=== PATIENT | female | born 1965 | race Caucasian/White ===

== ENCOUNTER 2021-04-23 19:36 | Inpatient (IN) | payer OTHER ==
[~2021-04-23] VITALS: Ht 172.7 cm; Wt 83.0 kg
[2021-04-23 19:37] VITALS: BP 161/69
[2021-04-23] MEDS ORDERED: LIPITOR40 MG PO (20:11)
[2021-04-23] MEDS ORDERED: CHILDREN'S ASPI81 M1 PO (20:11)
[2021-04-23] MEDS ORDERED: LISINOPRIL5 MG PO (20:11)
[2021-04-23] MEDS ORDERED: TOPROL XL50 MG PO (20:11)
[2021-04-23] MEDS ORDERED: NEURONTIN 300M300 M2 PO (20:11)
[2021-04-23] MEDS ORDERED: XARELTO20 MG PO (20:12)
[2021-04-23 20:38] LABS: ABSOLUTE NEUTROPHILS 4.7 thou/uL (1.4-8.2); BASOPHILS 0.6 % (0.0-2.0); EOSINOPHILS 3.9 % (0.0-3.0); HEMATOCRIT 36.4 % (37.0-47.0); HEMOGLOBIN 12.2 gm/dL (12.0-15.0); LYMPHOCYTES 20.8 % (24.0-44.0); MCH 31.8 pg (26.0-34.0); MCHC 33.4 g/dL (28.0-37.0); MCV 95.1 fL (80.0-100.0); MONOCYTES 7.2 % (1.0-8.0); PLATELET COUNT 257 thou/uL (150-400); POLYS 67.5 % (36.0-66.0); RBC 3.83 mil/uL (4.20-5.00); RDW 12.7 % (10.5-14.5)
[2021-04-23 21:16] LABS: ANION GAP 9 mmol/L (7-16); BUN 22 mg/dL (7-18); CHLORIDE 105 mmol/L (98-107); CO2 27 mmol/L (21-32); CREATININE 1.1 mg/dL (0.6-1.0); GLUCOSE 101 mg/dL (74-106); SODIUM 141 mmol/L (136-145)
[2021-04-23 21:33] LABS: ALBUMIN 3.6 g/dL (3.4-5.0); LIPASE 85 U/L (73-393); SGOT 19 U/L (15-37); SGPT 14 U/L (30-65); TOTAL BILIRUBIN 0.4 mg/dL (0.2-1.0); TOTAL PROTEIN 7.5 g/dL (6.4-8.2); TROPONIN-I <0.06 ng/mL (<0.06)
[2021-04-23 23:22] VITALS: BP 142/82
[2021-04-23 23:46] VITALS: BP 140/71
[2021-04-24 00:10] VITALS: BP 132/74
[2021-04-24] MEDS ORDERED: PROAIR HFA8.5 GM INH (00:36)
[2021-04-24 05:25] LABS: CHOLESTEROL 174 mg/dL (<200); HDL CHOLESTEROL 68 mg/dL (>40); LDL CHOLESTEROL 92 mg/dL (<100); SERUM ASSESSMENT Clear; TC:HDL 2.6 Ratio (Not establshd); TRIGLYCERIDE 74 mg/dL (<150); TROPONIN-I <0.06 ng/mL (<0.06); VLDL 15 mg/dL (<40)
[2021-04-24 05:43] VITALS: BP 109/49
--- NOTE | 2021-04-24 06:19 | NUR ---
RECEIVED REPORT FROM ER NURSE. PT ARRIVED TO ROOM 364 AROUND MIDNIGHT. ADMISSION HX AND ASSESSMENT COMPLETED CHARTED. SHE C/O LEFT SIDED CHEST PAIN AND LEFT JAW PAIN. TYLENOL GIVEN FOR PAIN PT DECLINED ANY OTHER PAIN MEDICATION. SHE ALSO DECLINED SUBLIGUAL NITRO FOR CP. VSS. AFEBRILE. SB, SR ON TELE. HR 40S-60S. PT HAS BEEN SLEEPING QUIETLY IN BED THIS MORNING. RESPIRATIONS EVEN AND UNLABORED. FALL PRECAUTIONS IN PLACE PT STATED SHE HAS HX OF FALLS. PROGRESSING SLOWLY TOWARD POC GOALS. WILL GIVE REPORT TO ONCOMING NURSE.
--- NOTE | 2021-04-24 07:25 | EKG ---
[address] [employer] [place] [address] ELECTROCARDIOGRAM REPORT Name: JUSTO MEJIALainey GUERRERO Room #: 364-P ADM IN M.R.#: [id number] Admission: 04/23/21 Attend Phys: Raad Mckeon MD Discharge: Date of : 67 Report #: [id number] [facility] ED Test Date: 2021-04-23 Test Time: 21:53:53 Pat Name: AGA MEJIA Department: Room: 364 Gender: F Sales Support Engineer: MPANICOLE : 1965 Requested By: Irving Samuel Order Number: [id number] MD: Bebeto Painter Measurements Intervals Twining Rate: 50 P: 56 ID: [id number] QRS: 43 QRSD: 99 T: 41 QT: 533 QTc: 487 Interpretive Statements Sinus rhythm Probable left atrial enlargement Borderline prolonged QT interval Compared to ECG 04/23/2021 19:42:14 No significant changes Electronically Signed On 04-24-2021 7:25:38 CDT by Bebeto Painter [email or web address] <ELECTRONICALLY SIGNED> By: Bebeto Painter MD, [facility] 04/24/21 0725 52 52 Bebeto Painter MD, FACC /EPI
--- NOTE | 2021-04-24 07:25 | EKG ---
[address] [place] [address] ELECTROCARDIOGRAM REPORT Name: AGA MEJIA Room #: 364-P ADM IN M.R.#: [id number] Admission: 04/23/21 Attend Phys: Raad Mckeon MD Discharge: Date of : 67 Report #: [id number] 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 : 1965 Requested By: Irving Samuel Order Number: [id number] MD: Bebeto Painter Measurements Intervals Vandiver Rate: 63 P: 34 WA: 148 QRS: 29 QRSD: 104 T: 45 QT: 485 QTc: 497 Interpretive Statements Sinus rhythm Probable left atrial enlargement Borderline prolonged QT interval Baseline wander in lead(s) V5 Compared to ECG 02/26/2004 22:47:28 Sinus tachycardia no longer present Inferior Q waves no longer present Q waves no longer present ST (T wave) deviation no longer present Electronically Signed On 04-24-2021 7:25:24 CDT by Bebeto Painter [email or web address] <ELECTRONICALLY SIGNED> By: Bebeto Painter MD, [facility] 04/24/21 0725 41 41 Bebeto Painter MD, [facility] /EPI
[2021-04-24 07:43] VITALS: BP 119/70
--- NOTE | 2021-04-24 09:05 | 2DMMODE ---
[facility] [place] [address] 2 D/M-MODE ECHOCARDIOGRAM Name: AGA MEJIA CESAR Room #: 364-P ADM IN M.R.#: [id number] Admission: 04/23/21 Attend Phys: Raad Mckeon MD Discharge: Date of : 67 Report #: [id number] THIS REPORT FOR: cc: FAM - No family physician/PCP FAM - No family physician/PCP Enmanuel Laguna MD ~ APPROVED REPORT Study performed: 04/24/2021 08:17:52 EXAM: Comprehensive 2D, Doppler, and color-flow Echocardiogram Patient Location: Bedside Room #: 364 Status: routine BSA: 1.97 HR: 46 bpm BP: 109/49 mmHg Rhythm: Sinus Hari Other Information Study Quality: Adequate Indications Chest Pain Hx: Cancer/Chemo with cardiomyopathy. Strokes. Afib. 2D Dimensions RVDd: 39.62 mm IVSd: 10.42 (7-11mm) LVOT Diam: 20.46 (18-24mm) LVDd: 52.21 mm PWd: 10.26 (7-11mm) LVDs: 41.13 (25-40mm) Left Atrium: 35.75 (27-40mm) Aortic Root: 28.70 mm Volumes Left Atrial Volume (Systole) Single Plane 4CH: 63.60 mL Single Plane 2CH: 64.71 mL LA ESV Index: 37.00 mL/m2 Aortic Valve AoV Peak Gio.: 1.37 m/s AO Peak Gr.: 7.51 mmHg LVOT Max P.29 mmHg LVOT Max V: 1.04 m/s [facility] [address] [place] [address] 2 D/M-MODE ECHOCARDIOGRAM Name: AGA MEJIA CESAR Room #: 364-P [facility]#: [id number] Admission: 04/23/21 Attend Phys: Raad Mckeon MD Discharge: Date of : 67 Report #: [id number] THOMAS Vmax: 2.48 cm2 Mitral Valve E/A Ratio: 1.4 MV Decel. Time: 230.48 ms MV E Max Gio.: 0.86 m/s MV A Gio.: 0.60 m/s MV PHT: 66.84 ms IVRT: 87.66 ms Pulmonary Valve PV Peak Gio.: 0.85 m/s PV Peak Gr.: 2.91 mmHg Pulmonary Vein P Vein S: 0.64 m/s P Vein D: 0.48 m/s P Vein S/D Ratio: 1.33 Tricuspid Valve TR Peak Gio.: 2.34 m/s RAP Estimate: 5.00 mmHg TR Peak Gr.: 22.00 mmHg PA Pressure: 27.00 mmHg Left Ventricle The left ventricle is normal size. There is normal left ventricular wall thickness. Left ventricular systolic function is mildly decreased. LVEF is 45%. The left ventricular diastolic function is normal. Right Ventricle The right ventricle is normal size. The right ventricular systolic function is normal. Atria Left atrium is mildly dilated. The right atrium size is normal. Aortic Valve The aortic valve is normal in structure. No aortic regurgitation is present. There is no aortic valvular stenosis. Mitral Valve The mitral valve is normal in structure. Trace to mild mitral regurgitation. No evidence of mitral valve stenosis. Tricuspid Valve [facility] [address] [place] [address] 2 D/M-MODE ECHOCARDIOGRAM Name: AGA MEJIA Room #: 364-P ADM IN M.R.#: [id number] Admission: 04/23/21 Attend Phys: Raad Mckeon MD Discharge: Date of : 67 Report #: [id number] The tricuspid valve is normal in structure. Trace tricuspid regurgitation. Estimated PAP is 27mmHg. Pulmonic Valve Pulmonic valve is not well visualized. Great Vessels The aortic root is normal in size. Ascending aorta is not well visualized. IVC is normal in size and collapses >50% with inspiration. Pericardium There is no pericardial effusion. <Conclusion> The left ventricle is normal size. There is normal left ventricular wall thickness. Left ventricular systolic function is mildly decreased. LVEF is 45%. The right ventricle is normal size. Left atrium is mildly dilated. The aortic valve is normal in structure. Trace to mild mitral regurgitation. Trace tricuspid regurgitation. <ELECTRONICALLY SIGNED> By: Enmanuel Laguna MD 04/24/21904 4 4 Enmanuel Laguna MD /INF
[2021-04-24 15:43] VITALS: BP 116/76
--- NOTE | 2021-04-24 15:53 | NUR ---
INITIAL ASSESSMENT: Received consult. MARY reviewed chart and spoke with nursing and attending physician. Pt was admitted from home due to chest pain. Pt with hx of breast cancer. MARY met with pt and dtr at bedside. Introduced role of SW. Pt is alert/orientated x 4. Pt reports she lives at home with her dtr. Prior to admission, pt was independent with ADLs. No use of DME. No hx of services or post-acute placement. Pt states she is in the process of transferring her primary care from [place] to . Pt is unsure of her new PCP at . Discharge home is anticipated in 1-2 days. SW is following to assist as needed with discharge planning.
[2021-04-24 20:02] VITALS: BP 123/68
[2021-04-24] MEDS ORDERED: XANAX2 MG PO (20:03)
[2021-04-25 03:07] LABS: GLYCOHEMOGLOBIN (HGB A1C) 5.1 % (4.8-5.6)
--- NOTE | 2021-04-25 04:33 | NUR ---
PT REQUESTED XANAX TO HELP WITH SLEEP. SHE HAS SINCE BEEN SLEEPING MOST OF THE NIGHT. RESPIRATIONS EVEN AND UNLABORED. PT CALLS OUT APPROPRIATELY FOR ASSISTANCE WHEN GETTING UP. SR, SB ON TELE. HR 40S-50S WHILE SHE IS ASLEEP. PT C/O HEADACHE EARLIER IN THE NIGHT. TYLENOL GIVEN. SHE DENIED ANY CHEST PAIN OR JAW PAIN DURING THE NIGHT. VSS. AFEBRILE. NPO SINCE MIDNIGHT FOR NUCLEAR MED TEST TODAY. PROGRESSING SLOWLY TOWARD POC GOALS. WILL CONTINUE TO MONITOR.
[2021-04-25 05:05] VITALS: BP 119/60
[2021-04-25 07:54] VITALS: BP 153/83
[2021-04-25 11:57] VITALS: BP 121/75
--- NOTE | 2021-04-25 16:02 | NUR ---
SW reviewed chart and spoke with nursing and attending physician. Pt to have stress test today. If negative, will discharge home. No discharge needs identified at this time. SW is available to assist should needs arise.
[2021-04-25 17:05] VITALS: BP 121/75
[2021-04-25 17:12] VITALS: BP 121/75
--- NOTE | 2021-04-25 18:05 | NUR ---
assumed care of pt at 0700. pt aox4 no acute distress. denies pain. up ad randolph. nuc med stress negative. ok for discharge. waiting on transport.
== END 2021-04-25 18:55 | disposition home or self-care (01) | DRG 313 ==
LOC: ER 19:36 → EROBS 22:15 → 3W 23:48
PROVIDERS: Emergency Medicine; Nurse Practitioner Family; ADMIT Hospitalist; ATTEND Hospitalist
DX: R07.89 Other chest pain (principal); I42.9 Cardiomyopathy, unspecified; I48.0 Paroxysmal atrial fibrillation; J45.909 Unspecified asthma, uncomplicated; E78.5 Hyperlipidemia, unspecified; I10 Essential (primary) hypertension; Z86.73 Personal history of transient ischemic attack (TIA), and cerebral infarction without residual deficits; Z92.21 Personal history of antineoplastic chemotherapy; Z90.49 Acquired absence of other specified parts of digestive tract; Z88.6 Allergy status to analgesic agent; Z91.041 Radiographic dye allergy status; Z85.3 Personal history of malignant neoplasm of breast; Z79.01 Long term (current) use of anticoagulants; Z79.82 Long term (current) use of aspirin; Z79.899 Other long term (current) drug therapy
CPT/HCPCS: 10879

== ENCOUNTER 2021-12-02 22:09 | Emergency (ER) | payer OTHER ==
[~2021-12-02] VITALS: Ht 170.2 cm; Wt 77.1 kg
[~2021-12-02 22:09] MED LIST: CHILDREN'S ASPI81 M1 PO; LIPITOR40 MG PO; LISINOPRIL5 MG PO; NEURONTIN 300M300 M2 PO; PROAIR HFA8.5 GM INH; TOPROL XL50 MG PO; XANAX2 MG PO; XARELTO20 MG PO
[2021-12-03 01:51] VITALS: BP 131/52
== END 2021-12-03 01:51 | disposition home or self-care (01) ==
LOC: ER 22:09
DX: R20.2 Paresthesia of skin (principal); E78.5 Hyperlipidemia, unspecified; J45.909 Unspecified asthma, uncomplicated; Z90.49 Acquired absence of other specified parts of digestive tract; Z90.89 Acquired absence of other organs; Z79.899 Other long term (current) drug therapy; Z88.5 Allergy status to narcotic agent; Z91.02 Food additives allergy status